=== PATIENT | male | born 1985 | race Caucasian/White ===

== ENCOUNTER 2018-03-07 08:36 | Emergency (ER) | payer MEDICAID, OTHER ==
[2018-03-07 08:47] VITALS: BMI 32.1
[2018-03-07 08:50] VITALS: RESP 18; O2SAT 98
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
[2018-03-07 12:59] VITALS: BP 121/72; PULSE 84; TEMP 98.5
== END 2018-03-07 12:54 | disposition home or self-care (01) ==
LOC: C.ER 08:36
DX: S13.4XXA Sprain of ligaments of cervical spine, initial encounter (principal); S33.5XXA Sprain of ligaments of lumbar spine, initial encounter; V89.2XXA Person injured in unspecified motor-vehicle accident, traffic, initial encounter; Q65.89 Other specified congenital deformities of hip
CPT/HCPCS: 72040; 72100; 73502; 96372; 99285; J1885